=== PATIENT | female | born 1975 | race Caucasian/White ===

== ENCOUNTER 2018-07-25 13:13 | Day surgery (SDC) | payer BC ==
[2018-07-25] MEDS ORDERED: FENTAnyl 50 MCG/ML VIAL (14:21)
[2018-07-25] MEDS ORDERED: METOCLOPRAMIDE 10 MG INJ (14:25)
[2018-07-25] MEDS ORDERED: MIDAZOLAM 1 MG/ML 2 ML INJ (14:26)
[2018-07-25] MEDS ORDERED: CEFAZOLIN 1 GM INJ (14:27)
[2018-07-25] MEDS ORDERED: LIDOCAINE 2% (SDV) 5 ML INJ (14:27)
[2018-07-25] MEDS ORDERED: PROPOFOL 20 ML ×2 (14:27→20:25)
[2018-07-25] MEDS ORDERED: DIPHENHYDRAMINE 50 MG INJ IV (17:30)
[2018-07-25] MEDS ORDERED: LABETALOL HCL 20MG INJ IV (17:30)
[2018-07-25] MEDS ORDERED: LEVALBUTEROL (NEB) 1.25 MG/0.5 ML AMP HHN (17:30)
[2018-07-25] MEDS ORDERED: HYDROmorphONE 1 MG/5 ML IV SYRINGE IV ×3 (17:30)
[2018-07-25] MEDS ORDERED: FENTAnyl 50 MCG/ML VIAL IV ×2 (17:30)
[2018-07-25] MEDS ORDERED: MEPERIDINE 25 MG INJ IV (17:30)
[2018-07-25] MEDS ORDERED: hydrALAzine 20 MG INJ IV (17:30)
[2018-07-25] MEDS ORDERED: POLYMYXIN/BACITRACIN 1L IRRIG (17:59)
[2018-07-25] MEDS: ROPIVACAINE 0.5 % 30 ML VIAL (18:02)
[2018-07-25] MEDS ORDERED: BACITRACIN 0.9 GM OINT (20:10)
[2018-07-25] MEDS ORDERED: SUGAMMADEX SODIUM 200 MG/2 ML VIAL IV (20:15)
[2018-07-25] MEDS ORDERED: ONDANSETRON 4 MG INJ (20:25)
[2018-07-25] MEDS ORDERED: ROCURONIUM 50 MG INJ (20:25)
[2018-07-25] MEDS ORDERED: SUCCINYLCHOLINE CHLORIDE 100 MG/5 ML SYG IV (20:25)
[2018-07-25] MEDS ORDERED: morphine SULFATE/PF (2 MG/2 ML) SYG IV (21:00)
[2018-07-25] MEDS: ONDANSETRON 4 MG INJ IV (21:25)
== END 2018-07-25 21:54 | disposition home or self-care (01) ==
LOC: SDS 13:13
DX: M25.872 Other specified joint disorders, left ankle and foot (principal)
CPT/HCPCS: 29999; 82306; 84703